=== PATIENT | female | born 2000 | race Caucasian/White ===

== ENCOUNTER 2021-06-18 13:35 | Emergency (ER) | payer MEDICAID ==
[~2021-06-18] VITALS: Ht 154.9 cm; Wt 60.0 kg
[2021-06-18 13:38] VITALS: BP 130/87
[2021-06-18] MEDS ORDERED: TETanus/Pertussis (Acell)/Diphther VAC/PF (Tdap-Adult) 0.5ml syringe IMVAC ONE (13:45)
== END 2021-06-18 14:15 | disposition home or self-care (01) ==
LOC: ER 13:36
DX: S61.210A Laceration without foreign body of right index finger without damage to nail, initial encounter (principal); W26.8XXA Contact with other sharp object(s), not elsewhere classified, initial encounter; Y93.89 Activity, other specified; Y92.89 Other specified places as the place of occurrence of the external cause; Y99.8 Other external cause status
CPT/HCPCS: 12001; 12002; 90471; 90715; 99283

== ENCOUNTER 2022-05-17 02:41 | Emergency (ER) | payer MEDICAID ==
[~2022-05-17] VITALS: Ht 154.9 cm; Wt 68.2 kg
[2022-05-17 02:43] VITALS: BP 141/95
[2022-05-17] MEDS ORDERED: TRAZ-256 PO (03:22)
[2022-05-17] MEDS ORDERED: LORazepam 1 MG tablet PO ONE (03:25)
== END 2022-05-17 04:14 | disposition home or self-care (01) ==
LOC: ER 02:41
DX: F41.9 Anxiety disorder, unspecified (principal); F31.9 Bipolar disorder, unspecified
CPT/HCPCS: 99283